=== PATIENT | female | born 1990 | race Caucasian/White ===

== ENCOUNTER 2017-04-11 09:48 | Emergency (ER) | payer MEDICAID ==
[2017-04-11] MEDS ORDERED: Acetaminophen/Codeine 300-30 MG Tab PO ONE (10:41)
--- NOTE | 2017-04-15 01:41 | EDM.PDOC ---
ED HPI GENERAL MEDICAL PROBLEM - General Chief Complaint: Upper Extremity Injury/Pain Stated Complaint: LT HAND SWOLLEN Time Seen by Provider: 04/11/17 10:05 Source of Information: Reports: Patient History Limitations: Reports: No Limitations - History of Present Illness INITIAL COMMENTS - FREE TEXT/NARRATIVE: Pt. claims that she slipped on the ice approx. 24 hours prior to coming to the ER with complains of L hand pain/swelling. Pt. states she is not experiencing any paresthesia to the fingers of the hand. She states that she did not stike her head, and denies injury other than what is isolated to her L hand. Onset Date: 04/10/17 Duration: Constant Location: Reports: Upper Extremity, Left Quality: Reports: Throbbing Severity: Moderate Associated Symptoms: Reports: No Other Symptoms Left Hand Pain Score (Numeric/FACES): 8 - Related Data Allergies Allergy/AdvReac Type Severity Reaction Status Date / Time No Known Drug Allergies Allergy Other Verified 04/11/17 09:58 Home Meds: Home Meds . [No Known Home Meds] 04/11/17 [History] Social & Family History - Tobacco Use Smoking Status *Q: Unknown Ever Smoked Second Hand Smoke Exposure: No - Alcohol Use Days Per Week of Alcohol Use: 0 Number of Drinks Per Day: 0 Total Drinks Per Week: 0 - Recreational Drug Use Recreational Drug Use: No Review of Systems - Review of Systems Review Of Systems: ROS reveals no pertinent complaints other than HPI. ED EXAM, GENERAL - Physical Exam Exam: See Below Exam Limited By: No Limitations General Appearance: Alert, WD/WN, No Apparent Distress Extremities: Other (posterior of L hand is extremely edematous and erythematous. No obvious crepitus noted. Pt. able to move finger.) Neurological: Alert Course - Vital Signs Last Recorded V/S: Last Vital Signs Temp 36.7 C 04/11/17 09:50 Pulse 91 04/11/17 09:50 Resp 16 04/11/17 09:50 BP 133/65 04/11/17 09:50 Pulse Ox 100 04/11/17 09:50 - Orders/Labs/Meds Meds: Medications Discontinued Medications Generic Name Dose Route Start Last Admin Trade Name Freq PRN Reason Stop Dose Admin Acetaminophen/Codeine Phosphate 1 tab 04/11/17 10:41 04/11/17 10:46 Tylenol With Codeine No.3 300mg/30mg PO 04/11/17 10:42 1 tab ONETIME ONE Administration - Radiology Interpretation Free Text/Narrative:: Radiographs of L hand reveal fx. of 2nd, 3rd, and 4th metacarpal bones. Departure - Departure Time of Disposition: 11:38 Disposition: Home, Self-Care 01 Clinical Impression: Fracture of metacarpal bone of left hand - Discharge Information Instructions: Metacarpal Fracture, [id number] Referrals: PCP,None [Primary Care Provider] - Forms: ED Department Discharge Additional Instructions: Keep splint on all the time. Follow-up with [facility] or [facility] in 10 days. Lortab 5/325mg 1 every 6 hours Ibuprofen 600mg every 6 hours. Ice hand for 20 min every hour. May open back of splint to ice.
== END 2017-04-11 11:38 | disposition home or self-care (01) ==
LOC: VM.ED 09:48
DX: S62.301A Unspecified fracture of second metacarpal bone, left hand, initial encounter for closed fracture (principal); S62.303A Unspecified fracture of third metacarpal bone, left hand, initial encounter for closed fracture; S62.305A Unspecified fracture of fourth metacarpal bone, left hand, initial encounter for closed fracture; W00.9XXA Unspecified fall due to ice and snow, initial encounter
CPT/HCPCS: 73130; 99283; A9270

== ENCOUNTER 2018-06-26 03:00 | Emergency (ER) | payer MEDICAID ==
[2018-06-26] MEDS ORDERED: Amoxicillin/Clavulanate K 875-125 MG Tab PO ONE (03:38)
--- NOTE | 2018-06-26 03:45 | EDM.PDOC ---
ED HPI GENERAL MEDICAL PROBLEM - General Chief Complaint: ENT Problem Stated Complaint: right ear pain Time Seen by Provider: 06/26/18 03:36 Source of Information: Reports: Patient History Limitations: Reports: No Limitations - History of Present Illness INITIAL COMMENTS - FREE TEXT/NARRATIVE: Patient presents with complaints of right ear pain that started 4 hours ago. She was diagnosed on with Influenza and is taking tamiflu. Was seen by Dr. Garcia. She denies fever, chills, nausea, vomiting, neurologic changes. No abdominal pain, no throat pain. She does endorse sinus congestion. Denies smoking, drug or alcohol use. Denies all medical history. No allergies or current medications with the exception of the tamiflu. No urinary or bowel symptoms. No blood in urine or stool. Onset: Today, Sudden Duration: Intermittent Quality: Reports: Pressure, Sharp Severity: Moderate Associated Symptoms: Reports: No Other Symptoms - Related Data Allergies Allergy/AdvReac Type Severity Reaction Status Date / Time No Known Drug Allergies Allergy Other Verified 04/11/17 09:58 Home Meds: Home Meds . [No Known Home Meds] 04/11/17 [History] ED ROS ENT - Review of Systems Review Of Systems: See Below Constitutional: Reports: No Symptoms HEENT: Reports: Ear Pain (right) Respiratory: Reports: No Symptoms Cardiovascular: Reports: No Symptoms Endocrine: Reports: No Symptoms GI/Abdominal: Reports: No Symptoms : Reports: No Symptoms Musculoskeletal: Reports: No Symptoms Skin: Reports: No Symptoms Neurological: Reports: No Symptoms Psychiatric: Reports: No Symptoms Hematologic/Lymphatic: Reports: No Symptoms Immunologic: Reports: No Symptoms ED EXAM, ENT - Physical Exam Exam: See Below Exam Limited By: No Limitations General Appearance: Alert, WD/WN, Mild Distress Eye Exam: Bilateral Eye: EOMI, Normal Inspection, PERRL Ears: Canal Swelling, TM Erythema, TM Blood, Other (right ear pain) Nose: Normal Inspection, Normal Mucousa, No Blood Mouth/Throat: Normal Inspection, Normal Gums, Normal Lips, Normal Oropharynx, Normal Teeth Head: Atraumatic, Normocephalic Neck: Normal Inspection, Supple, Non-Tender, Full Range of Motion Respiratory/Chest: No Respiratory Distress, Lungs Clear, Normal Breath Sounds, No Accessory Muscle Use, Chest Non-Tender Cardiovascular: Normal Peripheral Pulses, Regular Rate, Rhythm, No Edema, No Gallop, No JVD, No Murmur, No Rub GI/Abdominal: Normal Bowel Sounds, Soft, Non-Tender, No Organomegaly, No Distention, No Abnormal Bruit, No Mass Back: Normal Inspection, Full Range of Motion Extremities: Normal Inspection, Normal Range of Motion, Non-Tender, No Pedal Edema, Normal Capillary Refill Neurological: Alert, Oriented, CN II-XII Intact, Normal Cognition, Normal Gait, Normal Reflexes, No Motor/Sensory Deficits Psychiatric: Normal Affect, Normal Mood Skin: Warm, Dry, Intact, Normal Color, No Rash Lymphatic: No Adenopathy Departure - Departure Time of Disposition: 04:00 Disposition: Home, Self-Care 01 Condition: Good Clinical Impression: Right otitis media with effusion - Discharge Information *PRESCRIPTION DRUG MONITORING PROGRAM REVIEWED*: Not Applicable *COPY OF PRESCRIPTION DRUG MONITORING REPORT IN PATIENT VARINDER: Not Applicable Instructions: Otitis Media, Adult, [id number], Amoxicillin; Clavulanic Acid tablets, Probiotics Referrals: Chantal Garcia DO [Primary Care Provider] - Additional Instructions: Plan 1. Stay well hydrated 2. Take your antibiotics as prescribed. Augmentin 875/125 mg take twice daily for 10 days. Eat 1 or 2 yogurts per day or probiotics to prevent a bacterial infection of the intestines you can get due to antibiotic use. 3. Follow up with your primary doctor in 10-14 days to be sure the infection has cleared 4. Take ibuprofen and tylenol for pain control 5. You can also take over the counter medications like benadryl or zyrtec to slow the production of fluid to decrease the build up in your ear 6. Please call if you have any additional questions or concerns - Problem List & Annotations (1) Right otitis media with effusion SNOMED Code(s): 84894184, 618286375 Code(s): H65.91 - UNSPECIFIED NONSUPPURATIVE OTITIS MEDIA, RIGHT EAR Status : Acute Priority: Medium - Problem List Review Problem List Initiated/Reviewed/Updated: Yes - Assessment/Plan Assessment:: right otitis media Plan: Plan 1. Stay well hydrated 2. Take your antibiotics as prescribed. Augmentin 875/125 mg take twice daily for 10 days. Eat 1 or 2 yogurts per day or probiotics to prevent a bacterial infection of the intestines you can get due to antibiotic use. 3. Follow up with your primary doctor in 10-14 days to be sure the infection has cleared 4. Take ibuprofen and tylenol for pain control 5. You can also take over the counter medications like benadryl or zyrtec to slow the production of fluid to decrease the build up in your ear 6. Please call if you have any additional questions or concerns
[2018-06-26] MEDS ORDERED: diphenhydrAMINE 25 MG Cap PO ONE (03:46)
== END 2018-06-26 03:55 | disposition home or self-care (01) ==
LOC: VM.ED 03:00
DX: H65.91 Unspecified nonsuppurative otitis media, right ear (principal)
CPT/HCPCS: 99282; A9270-GY

== ENCOUNTER 2022-04-15 14:21 | Emergency (ER) | payer MEDICAID ==
[2022-04-15] MEDS ORDERED: Propofol 200 MG/20 ML SDV ONE (15:12)
[2022-04-15] MEDS: Acetaminophen/oxyCODONE 325-5 MG Tab PO ONE (15:54)
== END 2022-04-15 17:15 | disposition home or self-care (01) ==
LOC: VM.ED 14:21
DX: S82.832A Other fracture of upper and lower end of left fibula, initial encounter for closed fracture (principal); S93.05XA Dislocation of left ankle joint, initial encounter; W00.0XXA Fall on same level due to ice and snow, initial encounter
CPT/HCPCS: 27788; 73600-LT; 99140; 99284-25; A9270-GY

== ENCOUNTER 2022-12-24 02:55 | Emergency (ER) | payer MEDICAID ==
[2022-12-24] MEDS ORDERED: Sodium Chloride 0.9% 10 ML Syringe FLUSH PRN (03:19)
[2022-12-24 03:37] LABS: BASOPHILS PERCENT AUTO 0.2 % (0.2-1.2); EOSINOPHILS ABSOLUTE AUTO 0.1 x10^3/uL (0.0-0.5); HEMATOCRIT 36.2 % (33.0-47.0); HEMOGLOBIN 12.9 g/dL (12.0-16.0); IMMATURE GRAN ABSOLUTE AUTO 0.01 x10^3/uL (0.00-0.07); LYMPHOCYTES ABSOLUTE AUTO 2.1 x10^3/uL (1.0-4.8); LYMPHOCYTES PERCENT AUTO 24.7 % (25.0-50.0); MEAN CORPUSCULAR HEMOGLOBIN 31.4 pg (26.0-32.0); MEAN CORPUSCULAR HGB CONC 35.6 g/dL (32.0-36.0); MEAN CORPUSCULAR VOLUME 88.1 fL (78.0-93.0); MONOCYTES ABSOLUTE AUTO 0.6 x10^3/uL (0.0-0.8); MONOCYTES PERCENT AUTO 7.4 % (2.0-11.0); NEUTROPHILS ABSOLUTE AUTO 5.5 x10^3/uL (1.8-7.7); NEUTROPHILS PERCENT AUTO 66.6 % (50.0-80.0); PLATELET COUNT,PLT 165 x10^3/uL (130-400); RED BLOOD CELL COUNT 4.11 x10^6/uL (4.00-5.50); WHITE BLOOD CELL COUNT,WBC 8.3 x10^3/uL (4.0-10.0)
[2022-12-24 03:39] LABS: BILIRUBIN,URINE NEGATIVE (NEGATIVE); COLOR,URINE YELLOW (YELLOW); GLUCOSE,URINE NEGATIVE (NEGATIVE); KETONES,URINE NEGATIVE (NEGATIVE); LEUKOCYTE ESTERASE,URINE TRACE (NEGATIVE); NITRITE,URINE NEGATIVE (NEGATIVE); OCCULT BLOOD,URINE TRACE-LYSED (NEGATIVE); PROTEIN,URINE NEGATIVE (NEGATIVE); UROBILINOGEN,URINE 0.2 EU/dL (0.2)
[2022-12-24] MEDS: Sodium Chloride 0.9% 1,000 ML IV SCH (03:40)
[2022-12-24] MEDS: Ondansetron 4 MG/2 ML SDV IVPUSH ONE (03:44)
[2022-12-24] MEDS: Ketorolac 15 MG/ML SDV IVPUSH ONE (03:46)
[2022-12-24] MEDS: HYDROmorphone 0.5 MG/0.5 ML Syringe IVPUSH ONE ×2 (03:48→04:11)
[2022-12-24 03:50] LABS: APPEARANCE,URINE SLIGHTLY CLOUDY (CLEAR)
[2022-12-24 03:51] LABS: BACTERIA,URINE OCCASIONAL /HPF (NOT SEEN); MUCUS,URINE OCCASIONAL /LPF (NOT SEEN); RBC,URINE 0-5 /HPF (NOT SEEN); SQUAMOUS EPITHELIAL CELLS,UR FEW /HPF (NOT SEEN); WBC,URINE 0-5 /HPF (NOT SEEN)
[2022-12-24 03:55] LABS: A/G RATIO 1.06; ALBUMIN 3.7 g/dL (3.4-5.0); BILIRUBIN TOTAL 0.3 mg/dL (0.2-1.0); C-REACTIVE PROTEIN 0.28 mg/dL (<=0.30); CALCIUM 8.7 mg/dL (8.5-10.1); CREATININE 0.6 mg/dL (0.55-1.02); EST CRCL DRUG DOSING (CG) 152.46 mL/min; POTASSIUM,K 3.6 mmol/L (3.5-5.1); PROTEIN TOTAL,TP 7.2 g/dL (6.4-8.2)
[2022-12-24 03:56] LABS: ANION GAP 14.6 mmol/L (5-15)
[2022-12-24] MEDS: Take Home: Acetaminophen/HYDROcodone 325-5 MG, 5 Tab Pack PO ONE (04:20)
== END 2022-12-24 04:50 | disposition home or self-care (01) ==
LOC: VM.ED 02:55
DX: R10.11 Right upper quadrant pain (principal)
CPT/HCPCS: 80053; 81001; 81025; 83690; 85025; 86140; 87086; 96361; 96374; 96375; 99283; 99284-25; A9270-GY; J1170; J1885; J2405; J7030